=== PATIENT | female | born 1980 | race American Indian/Alaskan Native ===

== ENCOUNTER → 2024-12-16 12:17 | Outpatient (REF) | payer OTHER, SELFPAY ==
[2024-12-16 12:52] VITALS: BP 145/82; BP_SYST 85
[2024-12-16 13:04] LABS: INR 1.03; PT 13.8 Sec (11.4-14.6)
[2024-12-16 13:13] LABS: Hematocrit 36.6 % (37.0-47.0); Hemoglobin 12.3 g/dL (12.0-16.0); Mean Corp Hgb Conc. 33.6 g/dL (33.0-37.0); Mean Corpuscular Volume 86.3 fL (81.0-99.0); Platelet Count 279 10^3/uL (130-400); Red Cell Dist. Width 13.2 % (11.5-14.5)
[2024-12-16 16:11] LABS: CSF Color Colorless; Red Cell Count/CSF 4 mm^3; White Cell Count/CSF 3 mm^3 (0-5)
[2024-12-16 16:13] LABS: CSF Color Colorless; CSF Tube # Clarity Clear; Red Cell Count/CSF 1 mm^3; White Blood Cell Count/CSF 1 mm^3 (0-5)
== END ==
LOC: RADI 12:17
PROVIDERS: ATTENDING PHYSICIAN Specialist; FAMILY PHYSICIAN Physician Assistant; REFERRING PHYSICIAN Physician Assistant
DX: R41.89 Other symptoms and signs involving cognitive functions and awareness (principal)
CPT/HCPCS: 36415; 62328; 82164; 82945; 84157; 85027; 85610; 86592; 87476; 89051